=== PATIENT | male | born 1955 | race Asian ===

== ENCOUNTER 2024-04-29 13:03 | Outpatient (RCR) | payer MEDICARE, MEDICAID, SELFPAY ==
--- NOTE | 2024-04-29 13:34 | CTCFLWUP_ITS ---
[facility] [address] [place], [place] [address] FOLLOW-UP NOTE Date: 04/29/2024 MR#: [id number] Name: BRENNA VILLEGAS : 1955 Dx: C61 Malignant neoplasm of prostate Identification. 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 PSA had risen to 0.2013 2224. 6840 cGy with 6 months worth of Lupron completed PSA less than 0.04 on 04/23/2024. Urinary problems gradually improving according to patient. Daughter was translating. I will see him back in 3 months with another PSA check. Electronically signed by: Sergio Yepez M.D. 04/29/2024 1:32 PM
== END 2024-05-09 23:59 | disposition home or self-care (01) ==
LOC: SCTC 13:03
PROVIDERS: PCP Family Medicine; Referring Provider Family Medicine; Visit Provider Radiology Therapeutic Radiology
DX: C61 Malignant neoplasm of prostate (principal); Z90.79 Acquired absence of other genital organ(s)
CPT/HCPCS: 99212; G0463

== ENCOUNTER 2024-07-30 10:59 | Outpatient (RCR) | payer MEDICARE, MEDICAID, SELFPAY ==
--- NOTE | 2024-07-29 14:00 | CTCFLWUP_ITS ---
[facility] [address] [place], [place] [address] FOLLOW-UP NOTE Date: 07/29/2024 MR#: [id number] Name: BRENNA VILLEGAS : 1955 Dx: C61 Malignant neoplasm of prostate Identification. Patient has group 5 adeno CA the left base of the prostate [id number]. Prostatectomy performed 06/06/2023. PSA qamar to 0.2 on 08/30/2023. Postoperation radiation therapy 6840 cGy completed radiation 8-. Has had 6 months of Lupron injections last one 02/19/2024. Missed the May injection request. Most recent lab less than 0.04 2-15 25. Denies any recent pelvic symptoms hot flashes symptoms. Spoke with daughter in [place] via telephone. A#1. Group 5 CA the prostate [id number] A#2. Postop XRT for high risk and rising PSA completed 08/30/2023. A#3. Has had 2 injections so far patient missed the May scheduled one A#4. Will get injection tomorrow and I will see him again in 3 months. Electronically signed by: Sergio Yeepz M.D. 07/29/2024 1:58 PM
== END 2024-08-07 23:59 | disposition home or self-care (01) ==
LOC: SCTC 10:59
PROVIDERS: PCP Family Medicine; Referring Provider Family Medicine; Visit Provider Radiology Therapeutic Radiology
DX: Z51.11 Encounter for antineoplastic chemotherapy (principal); C61 Malignant neoplasm of prostate; Z90.79 Acquired absence of other genital organ(s); Z92.3 Personal history of irradiation; Z79.818 Long term (current) use of other agents affecting estrogen receptors and estrogen levels
CPT/HCPCS: 96402; 99213; J9217; G0463

== ENCOUNTER 2025-05-21 16:42 | Emergency (ER) | payer OTHER, MEDICAID, SELFPAY ==
[2025-05-21 17:15] VITALS: BP 181/99; PULSE 103; RESP 18; TEMP 36.6; O2SAT 95; BMI 24.9
--- NOTE | 2025-05-21 17:36 | XR_ITS ---
EXAMINATION: PA chest single view TECHNIQUE: Upright PA chest single view Date and time: May 21, 2025, 1808 hours INDICATION: Shortness of breath today. FINDINGS: Normal heart size No pneumonia or pulmonary edema. Mild osteopenia. IMPRESSION: No pneumonia or pulmonary edema
[2025-05-21 18:07] LABS: Basophils # (Auto) 0.1 Thou/mm3 (0.0-0.2); Basophils % (Auto) 1 % (0-2.5); Eosinophils # (Auto) 0.2 Thou/mm3 (0.0-0.5); Eosinophils % (Auto) 3 % (0-10); Hematocrit 40.3 % (41.0-53.0); Hemoglobin 13.3 g/dL (13.5-16.0); Immature Granulocytes Auto 0.02 Thou/mm3 (0.00-0.00); Lymphocytes # (Auto) 1.0 Thou/mm3 (1.0-4.8); Lymphocytes % (Auto) 14 % (10-50); Mean Corpuscular HGB Conc 33.0 g/dl (31.0-37.0); Mean Corpuscular Hemoglobin 23.5 pg (25.0-35.0); Mean Corpuscular Volume 71 fL (80-100); Monocytes # (Auto) 0.5 Thou/mm3 (0.0-0.8); Monocytes % (Auto) 6 % (0-12); Neutrophils # (Auto) 5.5 Thou/mm3 (1.8-7.7); Neutrophils % (Auto) 76 % (37-80); Nucleated Red Blood Cell # 0.00 Thou/mm3 (0.00-0.00); Nucleated Red Blood Cell % 0 /100 WBC (0); Platelet Count 272 Thou/mm3 (140-440); RDW Standard Deviation 37.3 fL (35.1-43.9); Red Blood Count 5.67 Miln/mm3 (4.50-5.90); White Blood Count 7.3 Thou/mm3 (3.8-10.6)
[2025-05-21 18:26] LABS: B-Type Natriuretic Peptide 110 pg/mL (0-100)
[2025-05-21 18:27] LABS: Alanine Aminotransferase 32 U/L (10-49); Albumin, Serum 4.8 gm/dL (3.4-4.8); Albumin/Globulin Ratio 1.5 (1.2-2.2); Alkaline Phosphatase 135 U/L (46-116); Anion Gap 11 (7-16); Aspartate Amino Transferase 30 U/L (0-34); BUN/Creatinine Ratio 10 Ratio (12-20); Bilirubin,Total 0.7 mg/dL (0.3-1.2); Blood Urea Nitrogen 10 mg/dL (9-23); Calcium 9.6 mg/dL (8.3-10.6); Calcium (Corrected) 9.6 mg/dL (8.5-10.1); Carbon Dioxide 26.7 mMol/L (20.0-31.0); Chloride 103 mMol/L (98-107); Creatinine (Component) 1.0 mg/dL (0.6-1.3); Estimated Creatinine Clearance 59.2 mL/min (>60); Globulin 3.3 gm/dL (2.3-3.5); Glucose 103 mg/dL (74-106); Osmolality,Calculated 280 (275-295); Potassium 3.9 mMol/L (3.4-5.1); Sodium 141 mMol/L (136-145); Total Protein 8.1 gm/dL (5.7-8.2); eGFR > 60 See Note
[2025-05-21] MEDS: ALBUTEROL/IPRATROPIUM (Duoneb) RT SOL 3 ML NEBU INH (19:50)
[2025-05-21 19:51] VITALS: PULSE 120; RESP 18; O2SAT 96
--- NOTE | 2025-05-21 19:58 | PD.EDSOB ---
ED SOB =RME/HPI General Chief Complaint: Shortness of Breath/Dyspnea Stated Complaint: SOB Time Seen by Provider: 05/21/25 17:32 Source: patient and family Arrival date/time: 05/21/25 16:42 Mode of arrival: ambulatory Limitations: no limitations RME / HPI RME / HPI Narrative: This patient is a 18-year-old male who arrives to the ED today for evaluation of shortness of breath, cough and congestion concerns that began yesterday and continued into today. Patient states symptoms came on yesterday afternoon and have been relatively relenting. Patient complains of runny nose, cough and shortness of breath concerns. Patient was hypotensive on arrival and states he has a history of hypertension but did not take his after medication. Patient denies any fever nausea or vomiting. Related Data Home Medications ?Medication ?Instructions ?Recorded ?Confirmed lisinopril 40 mg tablet 40 mg PO QDAY 09/17/22 09/19/23 Previous Rx's ?Medication ?Instructions ?Recorded albuterol sulfate 90 mcg/actuation 2 puff inhalation Q6H PRN 05/21/25 aerosol inhaler (Ventolin HFA) shortness of breath or wheezing #8.5 grams loratadine 10 mg capsule 10 mg PO QDAY #14 caps 05/21/25 Allergies Allergy/AdvReac Type Severity Reaction Status Date / Time No Known Allergies Allergy Verified 09/19/23 08:53 Review of Systems Review of Systems Systems Reviewed: All systems reviewed, normal except as documented Past Medical History Past Medical History NEUROLOGIC: Positive Cerebrovascular Accident CARDIAC: Positive Cardiac Disorders ([place]), Hypercholesterolemia and Hypertension; Negative Congestive Heart Failure RESPIRATORY: Negative Chronic Obstructive Pulmonary Disease (COPD) or Asthma GENITOURINARY: Negative Renal Disease ENDOCRINE: Negative Diabetes Mellitus Type 1 or Diabetes Mellitus Type 2 HEMATOLOGIC: Negative Sickle Cell Disease Social History SMOKING STATUS: Current every day smoker SUBSTANCE USE: does not use ED Exam Narrative Physical exam: Patient displayed some mild shortness of breath but was histrionic rather than in distress at time of evaluation. General Limitations: Present no limitations General appearance: Present alert and in distress (Mild discomfort rather than distress at time of evaluation.) Head Head exam: Present atraumatic Eye Eye exam: Present normal appearance, PERRL and EOMI ENT ENT exam: Present normal exam, normal oropharynx and other (Coryza appreciated) Neck Neck exam: Present normal inspection, full ROM and trachea midline Chest Chest inspection: Present normal inspection and symmetric chest wall rise Respiratory Respiratory exam: Present normal lung sounds bilaterally and other (Unremarkable auscultation of bilateral lung ferguson. No signs of respiratory distress. No accessory muscle use.) Cardiovascular Cardiovascular exam: Present regular rate, normal rhythm and normal heart sounds Abdominal Exam Abdominal exam: Present soft and normal bowel sounds Extremities Exam Extremities exam: Present normal inspection and full ROM Back Exam Back exam: Present normal inspection and full ROM Neurological Exam Neurological exam: Present alert, oriented X3 and CN II-XII intact Psychiatric Psychiatric exam: Present normal affect and normal mood Skin Skin exam: Present warm, dry, intact and normal color Course Quality Measures none Orders Category Date Time Status XR chest 1V portable Stat Exams 05/21/25 17:36 Completed BNP [B-Type Natriuretic Peptide] Stat Lab 05/21/25 18:01 Completed CBC Stat Lab 05/21/25 18:01 Completed CMP [Comprehensive Metabolic Panel] Stat Lab 05/21/25 18:01 Completed Albuterol/Ipratr Rt Julia [Duoneb Rt Julia] Med 05/21/25 17:34 Discontinued 3 ml INH X1 ONE dexAMETHasone INJ [Decadron Inj] Med 05/21/25 17:34 Discontinued 10 mg IM X1 ONE As noted above Vital Signs Vital signs: Vital Signs Temperature 98 F 05/21/25 17:15 Pulse Rate 103 H 05/21/25 17:15 Respiratory Rate 18 05/21/25 17:15 Blood Pressure 181/99 H 05/21/25 17:15 Pulse Oximetry (%) 95 05/21/25 17:15 Oxygen Delivery Method Room Air 05/21/25 17:15 As noted above Shortness of Breath / Dyspnea MDM Narrative MDM Narrative:: All studies performed the ED were evaluated by me personally. Serum studies were unremarkable for any acute systemic concerns. Chest x-ray was unremarkable for any consolidation or intrapulmonary concerns. Patient responded well to medication dispensed. Patient appears to be suffering from a viral upper respiratory illness. Advise utilizing medication as needed for symptomatic relief. Patient data External records reviewed:: [facility] previous records Clinical information provided by:: patient and family Social determinants that could affect healthcare access:: none Patient has the following chronic illnesses:: Hypertension How is presenting disease/condition affected by chronic disease/condition?: uneffected by Evaluation data The following diagnostics were reviewed and interpreted by me:: lab results and radiology exam(s) Lab and/or radiology exams considered but not ordered:: None Interpretation Summary: Unremarkable Medications / Prescriptions Medications or Prescriptions considered but not ordered:: None Medication administrations:: Medication Administration History Discontinued Medications Albuterol/Ipratropium (Albuterol/Ipratropium (Duoneb) Rt Julia 3 Ml Nebu) 3 ml INH X1 ONE Stop: 05/21/25 17:35 Last Admin: 05/21/25 19:50 Dose: 3 ml Documented By: ОЛЬГА Dexamethasone Sodium Phosphate (Dexamethasone Sod Phos Inj 10 Mg/Ml Vial) 10 mg IM X1 ONE Stop: 05/21/25 17:35 As noted above Consultations Consultation(s) initiated? (list below): No Diagnosis Shortness of Breath Differential Diagnosis: other (Viral upper respiratory illness) Most likely diagnosis given after review of the tests above:: Viral upper respiratory illness Admission Indicated Admission indicated?: not indicated Explain why admission is indicated or not indicated:: Unwarranted Admission Request Was there a request for admission?: No Disposition Plan Disposition Plan: Discharge Discharge Attestation Discharge Attestation: The patient and all family members were given an opportunity to ask questions and understood the discharge instructions. Discharge instructions specifically effects, indications for sooner follow up or return to the emergency department, and the expected course of current diagnosis. Patient condition: Stable Discharge Plan Plan Patient Disposition: HOME (Self Care) Prescriptions/Referrals Prescriptions/Med Rec: New albuterol sulfate [Ventolin HFA] 90 mcg/actuation HFA aerosol inhaler 2 puff inhalation Q6H PRN (Reason: shortness of breath or wheezing) Qty: 8.5 0RF loratadine 10 mg capsule 10 mg PO QDAY Qty: 14 0RF No Action lisinopril 40 mg tablet 40 mg PO QDAY Referrals: No Primary/Family,Physician [Primary Care Provider] - In 1 week Problem List Clinical Impression: Viral upper respiratory illness Patient/Caregiver Discharge Instructions Education Materials: ED URI, Viral, No Abx (Adult) Print Language: Hebrew Stand Alone Forms: Randa Award Info., Patient Portal Info Letter
== END 2025-05-21 20:46 | disposition home or self-care (01) ==
PROVIDERS: Physician Assistant; Emergency Provider Family Medicine
DX: J06.9 Acute upper respiratory infection, unspecified (principal); B97.89 Other viral agents as the cause of diseases classified elsewhere; F17.210 Nicotine dependence, cigarettes, uncomplicated
CPT/HCPCS: 36415; 71045; 80053; 83880; 85025; 94640; 96372; 99283; A9270; J1100